=== PATIENT | female | born 1965 | race Caucasian/White ===

== ENCOUNTER 2017-10-20 22:03 | Emergency (ER) | payer MEDICAID ==
[~2017-10-20] VITALS: Ht 154.9 cm; Wt 55.0 kg
[2017-10-20] MEDS ORDERED: LIDOCAINE HCL 1%/EPI 1:200,000 30 ML VIAL MC ONE (23:00)
[2017-10-20] MEDS ORDERED: TETANUS, DIPHTHERIA, PERTUSSIS VAC/PF 0.5ML (>7YR OLD) IM ONE (23:00)
[2017-10-20] MEDS ORDERED: PIPERACILLIN/TAZ 3.375G PREMIX 50 ML IV ONE (23:00)
[2017-10-20] MEDS ORDERED: VANCOMYCIN 1 G PREMIX 200 ML IV ONE (23:00)
[2017-10-20 23:32] LABS: BASOPHILS % 0.3 % (0.0-2.0); HEMATOCRIT. 36.1 % (36.0-48.0); HEMOGLOBIN. 12.2 g/dL (12.0-16.0); LYMPHOCYTES % 20.7 % (20.0-50.0); MEAN CORPUSCULAR HEMOGLOBIN 30.8 pg (28.0-32.0); MEAN CORPUSCULAR VOLUME 90.7 fL (81.0-99.0); MEAN PLATELET VOLUME 8.2 fl (7.4-10.4); MONOCYTES % 9.4 % (2.0-8.0); NEUTROPHILS % 67.6 % (40.0-76.0); PLATELET 204 x1000/uL (130-400); RED BLOOD CELL COUNT 3.98 mill/uL (4.2-5.4); RED CELL DISTRIBUTION WIDTH 13.6 % (11.6-14.6)
[2017-10-20 23:34] LABS: CHLORIDE 97 mEq/L (98-107)
[2017-10-20 23:35] LABS: INR 1.4; PROTHROMBIN TIME 14.7 sec (9.4-11.6)
[2017-10-20 23:38] LABS: ETHANOL BLOOD < 10 mg/dL
[2017-10-21] MEDS ORDERED: SODIUM CHLORIDE 0.9% 1,000 ML IV ONE (00:06)
[2017-10-21 01:30] VITALS: BP 119/69
== END 2017-10-21 03:26 | disposition home or self-care (01) ==
LOC: ER 22:03
DX: L02.211 Cutaneous abscess of abdominal wall (principal); F17.200 Nicotine dependence, unspecified, uncomplicated; F11.10 Opioid abuse, uncomplicated; R79.1 Abnormal coagulation profile
CPT/HCPCS: 10060; 36415; 80053; 83605; 85025; 85610; 87040; 90471; 90715; 96365; 96367; 99284; G0482; J2543; J3370; J7030; Z7610

== ENCOUNTER 2019-02-19 15:39 | Inpatient (IN) | payer MEDICAID ==
[~2019-02-19] VITALS: Ht 160 cm; Wt 45.8 kg
[2019-02-19] MEDS ORDERED: ACETAMINOPHEN 325MG TABLET PO STA (16:37)
[2019-02-19] MEDS ORDERED: PIPERACILLIN/TAZ 3.375G PREMIX 50 ML IV ONE (16:45)
[2019-02-19] MEDS ORDERED: VANCOMYCIN 1 G PREMIX 200 ML IV ONE (16:45)
[2019-02-19] MEDS ORDERED: SODIUM CHLORIDE 0.9% 1000ML BAG (SEPSIS BOLUS) IV ONE (16:45)
[2019-02-19 16:54] LABS: BASOPHILS % 0.3 % (0.0-2.0); HEMATOCRIT. 38.5 % (36.0-48.0); HEMOGLOBIN. 13.2 g/dL (12.0-16.0); LYMPHOCYTES % 9.5 % (20.0-50.0); MEAN CORPUSCULAR VOLUME 90.7 fL (81.0-99.0); MEAN PLATELET VOLUME 8.8 fl (7.4-10.4); MONOCYTES % 4.9 % (2.0-8.0); NEUTROPHILS % 85.3 % (40.0-76.0); PLATELET 148 x1000/uL (130-400); RED BLOOD CELL COUNT 4.25 mill/uL (4.2-5.4); RED CELL DISTRIBUTION WIDTH 13.2 % (11.6-14.6)
[2019-02-19 16:58] LABS: CHLORIDE 101 mEq/L (98-107); INR 1.5; PROTHROMBIN TIME 14.7 sec (9.6-11.0)
[2019-02-19 17:50] LABS: CLARITY URINE CLOUDY (CLEAR); COLOR URINE YELLOW (YELLOW); KETONES URINE NEGATIVE (NEGATIVE); LEUKOCYTE ESTERASE URINE 3+ (NEGATIVE); NITRITE URINE NEGATIVE (NEGATIVE); OCCULT BLOOD URINE 1+ (NEGATIVE); PH URINE 6.5 (4.5-8.0); PROTEIN URINE NEGATIVE (NEGATIVE); SPECIFIC GRAVITY URINE 1.009 (1.005-1.030)
[2019-02-19 18:05] LABS: CANNABINOID URINE SCREEN PRESUMTIVE POSITIVE (NEGATIVE); PHENCYCLIDINE URINE SCREEN NEGATIVE (NEGATIVE)
[2019-02-19 18:06] LABS: *AMPHETAMINES SCREEN URINE PRESUMTIVE POSITIVE (NEGATIVE); *BARBITURATES SCREEN URINE NEGATIVE (NEGATIVE); *BENZODIAZEPINES SCREEN URINE NEGATIVE (NEGATIVE); *COCAINE SCREEN URINE NEGATIVE (NEGATIVE); OPIATES URINE SCREEN PRESUMTIVE POSITIVE (NEGATIVE)
[2019-02-19 18:10] LABS: METHADONE URINE SCREEN PRESUMTIVE POSITIVE (NEGATIVE)
[2019-02-19] MEDS ORDERED: IOHEXOL-300 100 ML BOTTLE ONE (18:25)
[2019-02-19] MEDS ORDERED: KETOROLAC 15MG/ML VIAL IV ONE (19:30)
[2019-02-19] MEDS ORDERED: ONDANSETRON HCL 4MG/2ML INJ IV PRN (22:15)
[2019-02-19] MEDS ORDERED: ACETAMINOPHEN 325MG TABLET PO PRN (22:15)
[2019-02-19 23:30] VITALS: BP 100/68
[2019-02-19] MEDS: KETOROLAC 30MG/ML VIAL IV PRN (23:58)
[2019-02-20] MEDS ORDERED: CEFTRIAXONE 1 G PREMIX 50 ML IV SCH ×2 (01:00→21:00)
[2019-02-20] MEDS ORDERED: MET5 PO (01:51)
[2019-02-20] MEDS: SODIUM CHLORIDE 0.9% 1,000 ML IV SCH ×2 (02:23→15:53)
[2019-02-20 04:00] VITALS: BP 91/58
[2019-02-20 07:50] LABS: BASOPHILS % 0.3 % (0.0-2.0); EOSINOPHILS % 0.8 % (0.0-5.0); HEMATOCRIT. 35.3 % (36.0-48.0); HEMOGLOBIN. 11.7 g/dL (12.0-16.0); LYMPHOCYTES % 15.3 % (20.0-50.0); MEAN CORPUSCULAR HEMOGLOBIN 30.5 pg (28.0-32.0); MONOCYTES % 6.8 % (2.0-8.0); NEUTROPHILS % 76.8 % (40.0-76.0); PLATELET 124 x1000/uL (130-400); RED BLOOD CELL COUNT 3.83 mill/uL (4.2-5.4); RED CELL DISTRIBUTION WIDTH 13.4 % (11.6-14.6)
[2019-02-20 07:53] LABS: CHLORIDE 105 mEq/L (98-107)
[2019-02-20 08:00] VITALS: BP 100/60
[2019-02-20] MEDS: KETOROLAC 30MG/ML VIAL IV PRN ×3 (08:02→20:50)
[2019-02-20] MEDS ORDERED: POTASSIUM CHLORIDE 20MEQ TABLET SR PO NR (08:45)
[2019-02-20 12:00] VITALS: BP 112/64
[2019-02-20] MEDS ORDERED: VANCOMYCIN 1 G PREMIX 200 ML IV SCH (13:00)
[2019-02-20] MEDS: LINEZOLID 600 MG PREMIX 300 ML IV SCH (15:53)
[2019-02-20 16:00] VITALS: BP 105/64
[2019-02-20 20:00] VITALS: BP 115/51
[2019-02-20 20:50] VITALS: BP 125/51
[2019-02-21] MEDS: SODIUM CHLORIDE 0.9% 1,000 ML IV SCH (01:22)
[2019-02-21] MEDS: LINEZOLID 600 MG PREMIX 300 ML IV SCH (01:23)
== END 2019-02-21 05:56 | disposition left against medical advice (07) | DRG 720 ==
LOC: ER 16:01 → 8WST 19:57 → EDBEDREQ 20:01 → EDBEDREQTM 20:01 → ENRESERV 22:14
PROVIDERS: ADMIT Internal Medicine; ATTEND Internal Medicine
DX: A41.89 Other specified sepsis (principal); F11.20 Opioid dependence, uncomplicated; F17.200 Nicotine dependence, unspecified, uncomplicated; N10 Acute pyelonephritis; K56.41 Fecal impaction; K86.1 Other chronic pancreatitis; W19.XXXA Unspecified fall, initial encounter; Z98.891 History of uterine scar from previous surgery; F19.10 Other psychoactive substance abuse, uncomplicated; F12.90 Cannabis use, unspecified, uncomplicated; B18.2 Chronic viral hepatitis C; Z53.21 Procedure and treatment not carried out due to patient leaving prior to being seen by health care provider
CPT/HCPCS: 36415; 71045; 74177; 80048; 80305; 81003; 83605; 84145; 84484; 87077; 87186; 93005; 93306; 93970; 96374; 99285; J0696; J1885; J2020; J2543; J3370; J7030; Q9967

== ENCOUNTER 2019-02-21 07:47 | Emergency (ER) | payer MEDICAID ==
[~2019-02-21] VITALS: Ht 152.4 cm; Wt 50.0 kg
[~2019-02-21 07:47] MED LIST: MET5 PO
[2019-02-21 12:21] LABS: CHLORIDE 107 mEq/L (98-107)
[2019-02-21 13:38] LABS: HEMATOCRIT. 33.8 % (36.0-48.0); HEMOGLOBIN. 11.5 g/dL (12.0-16.0); MEAN CORPUSCULAR HEMOGLOBIN 31.3 pg (28.0-32.0); MEAN CORPUSCULAR VOLUME 92.2 fL (81.0-99.0); RED BLOOD CELL COUNT 3.67 mill/uL (4.2-5.4); RED CELL DISTRIBUTION WIDTH 13.5 % (11.6-14.6)
[2019-02-21 14:13] LABS: PLATELET ESTIMATE SLIGHTLY DECREASED
[2019-02-21 14:15] LABS: MEAN PLATELET VOLUME 8.9 fl (7.4-10.4); PLATELET 110 x1000/uL (130-400)
[2019-02-21] MEDS ORDERED: HYDROCODONE/ACETAMINOPHEN 5/325MG TABLET PO ONE ×2 (17:15→18:00)
[2019-02-21] MEDS ORDERED: AMOXICILLIN 500 MG CAPSULE PO ONE (18:00)
[2019-02-21 18:09] VITALS: BP 116/74
== END 2019-02-21 19:03 | disposition home or self-care (01) ==
LOC: ER 07:47 → CANBEDREQ 20:00
DX: R10.9 Unspecified abdominal pain (principal); F12.10 Cannabis abuse, uncomplicated; F11.10 Opioid abuse, uncomplicated; R11.10 Vomiting, unspecified; M54.5 Low back pain; F17.290 Nicotine dependence, other tobacco product, uncomplicated; Z98.890 Other specified postprocedural states; Z87.19 Personal history of other diseases of the digestive system
CPT/HCPCS: 36415; 99284; 99406

== ENCOUNTER 2020-04-17 13:37 | Emergency (ER) | payer MEDICAID ==
[~2020-04-17] VITALS: Ht 165.1 cm; Wt 60.0 kg
[2020-04-17 16:09] LABS: CLARITY URINE CLEAR (CLEAR); COLOR URINE DARK YELLOW (YELLOW); KETONES URINE NEGATIVE (NEGATIVE); LEUKOCYTE ESTERASE URINE TRACE (NEGATIVE); NITRITE URINE NEGATIVE (NEGATIVE); OCCULT BLOOD URINE NEGATIVE (NEGATIVE); PROTEIN URINE NEGATIVE (NEGATIVE); SPECIFIC GRAVITY URINE 1.037 (1.005-1.030)
[2020-04-17] MEDS ORDERED: ACETAMINOPHEN 325MG TABLET PO ONE (16:30)
[2020-04-17 17:15] VITALS: BP 116/79
== END 2020-04-17 17:17 | disposition home or self-care (01) ==
LOC: ER 13:37
DX: N30.00 Acute cystitis without hematuria (principal); F12.10 Cannabis abuse, uncomplicated; F11.10 Opioid abuse, uncomplicated; Z98.890 Other specified postprocedural states
CPT/HCPCS: 81003; 81025; 99283

== ENCOUNTER 2020-05-11 09:08 | Emergency (ER) | payer MEDICAID ==
[~2020-05-11] VITALS: Ht 165.1 cm; Wt 60.0 kg
[2020-05-11] MEDS ORDERED: ACETAMINOPHEN 500MG TABLET PO ONE (10:00)
[2020-05-11] MEDS ORDERED: IBUPROFEN 800MG TABLET PO ONE (10:00)
[2020-05-11] MEDS ORDERED: HYDROCODONE/ACETAMINOPHEN 5/325MG TABLET PO ONE (10:45)
[2020-05-11 15:18] VITALS: BP 124/74
== END 2020-05-11 15:22 | disposition home or self-care (01) ==
LOC: ER 09:08
DX: M41.9 Scoliosis, unspecified (principal); M62.830 Muscle spasm of back; F17.200 Nicotine dependence, unspecified, uncomplicated
CPT/HCPCS: 74176; 99284

== ENCOUNTER 2021-02-22 23:57 | Inpatient (IN) | payer MEDICAID ==
[~2021-02-22] VITALS: Ht 157.5 cm; Wt 52.6 kg
[2021-02-23] MEDS ORDERED: MORPHINE SULFATE 4 MG/ML CPJ (NOT FOR IM USE) IV STA (00:49)
[2021-02-23] MEDS ORDERED: ONDANSETRON HCL 4MG/2ML INJ IV STA (00:49)
[2021-02-23] MEDS ORDERED: PIPERACILLIN/TAZ 3.375G PREMIX 50 ML IV ONE (01:00)
[2021-02-23] MEDS ORDERED: VANCOMYCIN 1 G PREMIX 200 ML IV ONE (01:00)
[2021-02-23] MEDS ORDERED: SODIUM CHLORIDE 0.9% 1000ML BAG (SEPSIS BOLUS) IV ONE (01:00)
[2021-02-23] MEDS ORDERED: CLINDAMYCIN 600 MG in DEXTROSE 5% WATER 50 ML IV ONE (01:00)
[2021-02-23 01:02] LABS: BASOPHILS % 0.4 % (0.0-2.0); EOSINOPHILS % 2.1 % (0.0-5.0); HEMATOCRIT. 35.5 % (36.0-48.0); HEMOGLOBIN. 11.9 g/dL (12.0-16.0); LYMPHOCYTES % 30.2 % (20.0-50.0); MEAN CORPUSCULAR HEMOGLOBIN 29.2 pg (28.0-32.0); MEAN CORPUSCULAR VOLUME 87.5 fL (81.0-99.0); MEAN PLATELET VOLUME 8.3 fl (7.4-10.4); MONOCYTES % 13.6 % (2.0-8.0); NEUTROPHILS % 53.7 % (40.0-76.0); PLATELET 190 x1000/uL (130-400); RED BLOOD CELL COUNT 4.06 mill/uL (4.2-5.4); RED CELL DISTRIBUTION WIDTH 14.6 % (11.6-14.6)
[2021-02-23 01:05] LABS: CHLORIDE 104 mEq/L (98-107)
[2021-02-23] MEDS ORDERED: CLINDAMYCIN 600MG PREMIX 50 ML IV SCH (01:15)
[2021-02-23] MEDS ORDERED: LIDOCAINE HCL 1% 20ML VIAL (Pyxis) INJ ONE (08:12)
[2021-02-23] MEDS ORDERED: ONDANSETRON HCL 4MG/2ML INJ IV PRN (10:30)
[2021-02-23] MEDS: HYDROCODONE/ACETAMINOPHEN 5/325MG TABLET PO PRN (10:54)
[2021-02-23 11:51] LABS: *AMPHETAMINES SCREEN URINE PRESUMTIVE POSITIVE (NEGATIVE); *BARBITURATES SCREEN URINE NEGATIVE (NEGATIVE); *BENZODIAZEPINES SCREEN URINE NEGATIVE (NEGATIVE); *COCAINE SCREEN URINE NEGATIVE (NEGATIVE); OPIATES URINE SCREEN PRESUMTIVE POSITIVE (NEGATIVE)
[2021-02-23 11:52] LABS: CANNABINOID URINE SCREEN PRESUMTIVE POSITIVE (NEGATIVE); PHENCYCLIDINE URINE SCREEN NEGATIVE (NEGATIVE)
[2021-02-23] MEDS ORDERED: VANCOMYCIN 750 MG PREMIX 150 ML IV SCH (12:00)
[2021-02-23] MEDS ORDERED: LEVOFLOXACIN 500MG PREMIX 100 ML IV SCH (12:00)
[2021-02-23] MEDS ORDERED: ENOXAPARIN 40MG/0.4ML SYR SUBCUT SCH (12:00)
[2021-02-23 12:07] LABS: METHADONE URINE SCREEN PRESUMTIVE POSITIVE (NEGATIVE)
[2021-02-24] MEDS: HYDROCODONE/ACETAMINOPHEN 5/325MG TABLET PO PRN (01:19)
[2021-02-24 02:15] VITALS: BP 141/95
[2021-02-24] MEDS ORDERED: MORPHINE SULFATE 2 MG/ML CPJ (NOT FOR IM USE) IV PRN (06:00)
[2021-02-24] MEDS ORDERED: ACETAMINOPHEN 325MG TABLET PO PRN (06:00)
[2021-02-24] MEDS ORDERED: METHADONE HCL 10MG TABLET PO SCH (06:00)
[2021-02-24] MEDS ORDERED: PIPERACILLIN/TAZOBACTAM 3.375 G in DEXTROSE 5% WATER 50 ML IV SCH (08:00)
[2021-02-24] MEDS ORDERED: NALOXONE HCL 0.4MG/ML VIAL IV PRN (08:00)
[2021-02-24] MEDS ORDERED: LEVOFLOXACIN 500MG PREMIX 100 ML IV SCH (11:00)
== END 2021-02-24 07:25 | disposition left against medical advice (07) | DRG 383 ==
LOC: ER 23:57 → MICUSO 02-23 03:07 → 6EST 02-23 19:47
PROVIDERS: ADMIT Internal Medicine; ATTEND Internal Medicine
PROC: 02HV33Z Insertion of Infusion Device into Superior Vena Cava, Percutaneous Approach (ICD-10-PCS; principal; 2021-02-23)
PROC: B548ZZA Ultrasonography of Superior Vena Cava, Guidance (ICD-10-PCS; 2021-02-23)
DX: L03.115 Cellulitis of right lower limb (principal); E44.1 Mild protein-calorie malnutrition; K74.60 Unspecified cirrhosis of liver; D64.9 Anemia, unspecified; F15.10 Other stimulant abuse, uncomplicated; F12.10 Cannabis abuse, uncomplicated; F11.10 Opioid abuse, uncomplicated; Z53.29 Procedure and treatment not carried out because of patient's decision for other reasons; N18.9 Chronic kidney disease, unspecified; F10.21 Alcohol dependence, in remission; Z98.891 History of uterine scar from previous surgery; Z79.899 Other long term (current) drug therapy; Z71.51 Drug abuse counseling and surveillance of drug abuser; Z68.21 Body mass index [BMI] 21.0-21.9, adult
CPT/HCPCS: 36415; 36573; 71045; 73700; 80053; 80305; 83605; 83880; 84484; 85025; 93005; 93971; 99285; C1725; C1769; J1650; J1956; J2270; J2405; J2543; J3370; J3490; J7030; J7040; J7060

== ENCOUNTER 2021-02-26 12:58 | Inpatient (IN) | payer MEDICAID ==
[~2021-02-26] VITALS: Ht 152.4 cm; Wt 53.1 kg
[~2021-02-26 12:58] MED LIST changes: -MET5 PO; +METH-817 PO
[2021-02-26] MEDS ORDERED: VANCOMYCIN 1 G PREMIX 200 ML IV ONE (14:45)
[2021-02-26] MEDS ORDERED: PIPERACILLIN/TAZ 3.375G PREMIX 50 ML IV ONE (14:45)
[2021-02-26 16:01] LABS: BASOPHILS % 0.5 % (0.0-2.0); EOSINOPHILS % 1.6 % (0.0-5.0); HEMATOCRIT. 34.6 % (36.0-48.0); HEMOGLOBIN. 11.6 g/dL (12.0-16.0); LYMPHOCYTES % 28.1 % (20.0-50.0); MEAN CORPUSCULAR HEMOGLOBIN 29.7 pg (28.0-32.0); MEAN CORPUSCULAR VOLUME 88.4 fL (81.0-99.0); MEAN PLATELET VOLUME 8.2 fl (7.4-10.4); MONOCYTES % 9.1 % (2.0-8.0); NEUTROPHILS % 60.7 % (40.0-76.0); PLATELET 278 x1000/uL (130-400); RED BLOOD CELL COUNT 3.92 mill/uL (4.2-5.4); RED CELL DISTRIBUTION WIDTH 14.6 % (11.6-14.6)
[2021-02-26 16:08] LABS: CHLORIDE 102 mEq/L (98-107)
[2021-02-26 16:14] LABS: ETHANOL BLOOD < 10 mg/dL
[2021-02-26] MEDS ORDERED: IBUPROFEN 600MG TABLET PO STA (19:22)
[2021-02-26 22:50] VITALS: BP 138/69
[2021-02-26] MEDS ORDERED: NALOXONE HCL 0.4MG/ML VIAL IV PRN (23:45)
[2021-02-27] MEDS ORDERED: MORPHINE SULFATE 2 MG/ML CPJ (NOT FOR IM USE) IV PRN
[2021-02-27 00:37] VITALS: BP 120/65
[2021-02-27] MEDS: PIPERACILLIN/TAZOBACTAM 3.375 G in DEXTROSE 5% WATER 50 ML IV SCH ×2 (04:32→14:00)
[2021-02-27 04:42] VITALS: BP 118/69
[2021-02-27] MEDS ORDERED: VANCOMYCIN 750 MG PREMIX 150 ML IV SCH (05:00)
[2021-02-27] MEDS ORDERED: HYDROCODONE/ACETAMINOPHEN 5/325MG TABLET PO PRN (07:15)
[2021-02-27 08:00] VITALS: BP 118/75
[2021-02-27] MEDS ORDERED: METHADONE HCL 10MG TABLET PO SCH (09:00)
[2021-02-27] MEDS ORDERED: METHADONE HCL 5MG TABLET PO SCH (09:00)
[2021-02-27] MEDS ORDERED: SULF1TAB48 MT (10:24)
[2021-02-27] MEDS ORDERED: AMOX-424 MT (10:24)
[2021-02-27] MEDS ORDERED: ACET-2708 MT (10:25)
[2021-02-27 12:00] VITALS: BP 130/72
[2021-02-27 14:43] VITALS: BP 130/72
[2021-02-27 16:00] VITALS: BP 136/70
== END 2021-02-27 16:42 | disposition home or self-care (01) | DRG 383 ==
LOC: ER 12:58 → MICUSO 19:19 → 6EST 20:59
PROVIDERS: ADMIT Internal Medicine; ATTEND Internal Medicine
DX: L03.115 Cellulitis of right lower limb (principal); E88.09 Other disorders of plasma-protein metabolism, not elsewhere classified; B19.20 Unspecified viral hepatitis C without hepatic coma; F11.20 Opioid dependence, uncomplicated; F17.210 Nicotine dependence, cigarettes, uncomplicated; F10.21 Alcohol dependence, in remission; D64.9 Anemia, unspecified; Z98.891 History of uterine scar from previous surgery; Z71.51 Drug abuse counseling and surveillance of drug abuser; F19.10 Other psychoactive substance abuse, uncomplicated
CPT/HCPCS: 36415; 80053; 80320; 85025; 93005; 99285; J2270; J2543; J3370; J7040; J7060; G0480

== ENCOUNTER 2024-02-18 20:18 | Emergency (ER) | payer MEDICAID, OTHER ==
[~2024-02-18] VITALS: Ht 154.9 cm; Wt 50.0 kg
[~2024-02-18 20:18] MED LIST changes: +ACET-2708 MT; +AMOX-424 MT; +SULF1TAB48 MT
[2024-02-18 20:40] VITALS: BP 146/64; PULSE 104; RESP 20; TEMP 98.3; O2SAT 100
[2024-02-18] MEDS: TETANUS, DIPHTHERIA, PERTUSSIS VAC/PF 0.5ML (>10YR OLD) IM ONE (21:00)
[2024-02-18] MEDS: LIDOCAINE HCL/PF 1% 10 MG/ML 5ML VIAL INFIL ONE (21:00)
[2024-02-18] MEDS: BACITRACIN ZINC OINT UDPKT TOP ONE (21:00)
[2024-02-18] MEDS ORDERED: AMOX1TAB16 MT (22:05)
[2024-04-19] MEDS ORDERED: NEED-122 SQ (10:40)
[2024-04-19] MEDS ORDERED: METF-415 PO (10:40)
[2024-04-19] MEDS ORDERED: INSU100I28 SQ (10:40)
[2024-04-19] MEDS ORDERED: [UNRECOGNIZED DRUG - CODE] MC (10:40)
[2024-04-19] MEDS ORDERED: NAPH1POW3 PO (10:40)
== END 2024-02-18 22:32 | disposition home or self-care (01) ==
LOC: ER 20:18
DX: L03.011 Cellulitis of right finger (principal); F12.10 Cannabis abuse, uncomplicated; F11.10 Opioid abuse, uncomplicated
CPT/HCPCS: 90715; 90471; 99283; J3490; Z7610 ×3